=== PATIENT | male | born 1995 ===

== ENCOUNTER 2021-12-06 22:24 | Emergency (ER) | payer SELFPAY ==
[2021-12-06 23:44] VITALS: BP 123/87; PULSE 77; RESP 19; TEMP 97.1
--- NOTE | 2021-12-07 00:35 | ED ---
Recheck HPI - General Chief Complaint: Recheck/Abnormal Lab/Rx Stated Complaint: wants covid test Time Seen by Provider: 12/07/21 00:31 Source: patient, RN notes reviewed Mode of arrival: ambulatory - History of Present Illness Initial Comments: patient is 26-year-old male that Covid test return to [place]. He is afebrile any symptomatically. He was well-appearing. Patient is denying any chest pain shortness of breath headache nausea vomiting diarrhea constipation fever fatigue chills. - Related Data Allergies Allergy/AdvReac Type Severity Reaction Status Date / Time No Known Allergies Allergy Verified 12/06/21 23:41 Review of Systems ROS Statement: Those systems with pertinent positive or pertinent negative responses have been documented in the HPI. ROS Other: All systems not noted in ROS Statement are negative. Past Medical History Past Medical History: No Reported History History of Any Multi-Drug Resistant Organisms: None Reported Past Surgical History: No Surgical Hx Reported Past Psychological History: No Psychological Hx Reported Smoking Status: Current every day smoker Past Alcohol Use History: None Reported Past Drug Use History: None Reported General Exam General appearance: alert, in no apparent distress Head exam: Present: atraumatic, normocephalic, normal inspection Eye exam: Present: normal appearance, PERRL, EOMI. Absent: scleral icterus, conjunctival injection, periorbital swelling Neck exam: Present: normal inspection Respiratory exam: Present: normal lung sounds bilaterally. Absent: respiratory distress, wheezes, rales, rhonchi, stridor Cardiovascular Exam: Present: regular rate, normal rhythm, normal heart sounds. Absent: systolic murmur, diastolic murmur, rubs, gallop, clicks Neurological exam: Present: alert, oriented X3 Psychiatric exam: Present: normal affect, normal mood Skin exam: Present: warm, dry, intact, normal color. Absent: rash Course Vital Signs 12/06/21 23:41 Temperature 97.1 F L Pulse Rate 77 Respiratory 19 Rate Blood Pressure 123/87 O2 Sat by Pulse 100 Oximetry Medical Decision Making - Medical Decision Making 26-year-old male needing a Covid test to return to [place]. Covid test ordered and is negative. Case discussed with Dr. Vargas - Lab Data Lab Results 12/06/21 Range/Units 23:52 Coronavirus (PCR) Not Detected (Not Detectd) Disposition Clinical Impression: Encounter for screening for COVID-19 Disposition: HOME SELF-CARE Condition: Stable Additional Instructions: Please return to the Emergency Department if symptoms worsen or any other concerns. Is patient prescribed a controlled substance at d/c from ED?: No Referrals: Nonstaff,Physician [Primary Care Provider] - 1-2 days Time of Disposition: 00:35
== END 2021-12-07 00:43 | disposition home or self-care (01) ==
LOC: EC 22:24
DX: Z20.822 Contact with and (suspected) exposure to COVID-19 (principal); F17.200 Nicotine dependence, unspecified, uncomplicated
CPT/HCPCS: 87635; 99282